=== PATIENT | male | born 1970 | race Caucasian/White ===

== ENCOUNTER → 2023-09-21 | Outpatient (CLI) | payer OTHER ==
--- NOTE | 2023-09-21 12:47 | XR ---
EXAMINATION TYPE: XR shoulder complete LT DATE OF EXAM: 09/21/2023 12:10 PM CLINICAL INDICATION:Male, 53 years old with history of [id number] LT SHLD PAIN; [facility] COMPARISON: None TECHNIQUE: XR shoulder complete LT; examined in AP, internally rotated and scapular Y projections. FINDINGS: No evidence of acute osseous pathology, joint dislocation, or soft tissue swelling. The remaining po rtions of the visualized chest are unremarkable. Mild degeneration changes of the acromion and dista l clavicle. IMPRESSION: 1. No acute osseous pathology. 2. Mild shoulder osteoarthrosis.
== END | disposition home or self-care (01) ==
LOC: RADXRYALE 12:00
PROVIDERS: ATTEND Internal Medicine
DX: M19.012 Primary osteoarthritis, left shoulder (principal)

== ENCOUNTER → 2024-02-12 | Outpatient (CLI) | payer OTHER ==
[2024-02-12 20:14] LABS: Basophils # (A) 0.06 X 10*3/uL (0.00-0.10); Basophils % (A) 0.8 %; Eosinophils # (A) 0.26 X 10*3/uL (0.04-0.35); Eosinophils % (A) 3.6 %; HCT 43.6 % (39.6-50.0); HGB 14.5 g/dL (13.0-17.0); Lymphocytes # (A) 2.37 X 10*3/uL (0.90-5.00); Lymphocytes % (A) 32.6 %; MCH 32.5 pg (27.0-32.0); MCHC 33.3 g/dL (32.0-37.0); MCV 97.8 FL (80.0-97.0); Mean Platelet Volume 10.5 FL (9.5-12.2); Monocytes % (A) 8.3 %; NRBC Per 100 WBC 0 X 10*3/uL (0.00-0.01); Neutrophils # (A) 3.92 X 10*3/uL (1.80-7.70); Neutrophils % (A) 53.9 %; Platelet Count 219 X 10*3/uL (140-440); RBC 4.46 X 10*6/uL (4.40-5.60); WBC 7.27 X 10*3/uL (4.50-10.00)
[2024-02-12 20:36] LABS: Anion Gap 11.2 mmol/L (4.00-12.00); Carbon Dioxide 25.8 mmol/L (21.6-31.8); Potassium 4.2 mmol/L (3.5-5.5)
== END | disposition home or self-care (01) ==
LOC: LABWHC1 14:00
PROVIDERS: ATTEND Orthopaedic Surgery
DX: M75.42 Impingement syndrome of left shoulder (principal)
CPT/HCPCS: 36415; 80051; 85025

== ENCOUNTER → 2024-02-24 | Day surgery (SDC) | payer OTHER ==
[2024-02-22 15:06] VITALS: BMI 36.6
--- NOTE | 2024-02-23 22:49 | HP ---
HISTORY AND PHYSICAL Surgery is scheduled for 02/24/2024. HISTORY OF PRESENT ILLNESS: Davion Ng is a 53-year-old patient, who was seen with progressive left shoulder pain. We discussed options regarding treatment. He elected to proceed with left shoulder arthroscopy. Consent was obtained. PAST MEDICAL HISTORY: Hypertension, gastroesophageal reflux disease. PAST SURGICAL HISTORY: Rib excision. DAILY MEDICATIONS: 1. Lisinopril. 2. Pantoprazole. ALLERGIES: None. SOCIAL HISTORY: Denies tobacco use. PHYSICAL EVALUATION OF THE LEFT SHOULDER: Flexion is 100 degrees. Abduction is 90 degrees. External rotation is 40 degrees with pain and weakness. He is tender along the anterolateral acromion and rotator cuff insertion. Impingement is positive at 90 degrees. Cross-body adduction sign is positive. Drop-arm sign is positive. Distal neurovascular exam is intact. IMAGING STUDIES: Radiographs of the left shoulder revealed a type 3 acromion, acromioclavicular joint osteoarthritis and cystic changes of the tuberosity. MRI of left shoulder revealed rotator cuff tendon tear, acromioclavicular joint osteoarthritis, impingement in biceps dislocation. IMPRESSION: 1. Left shoulder impingement with rotator cuff tear. 2. Left shoulder acromioclavicular joint osteoarthritis. 3. Left shoulder bicipital dislocation/tendinitis. 4. Hypertension. PLAN: Left shoulder arthroscopy with subacromial decompression, rotator cuff repair, Tiffanie procedure, biceps tenodesis. MMROSELIAL / JOSHUAN: [id number] /
[~2024-02-24] MED LIST: LIDOCAINE 1% INJ 10MG/ML (20 ML MDV) ONE; PHENYLEPHRINE-0.9% NACL SYG 1,000 MCG/10 ML SYRINGE ONE; PROPOFOL 10 MG/ML 20 ML VIAL IV ONE; ROPIVACAINE 5 MG/ML 30 ML VIAL ONE; SUCCINYLCHOLINE CHLORIDE 200 MG/10 ML VIAL IV ONE; fentaNYL (PF) 50 MCG/ML 2 ML AMP ONE
[2024-02-24] MEDS: LIDOCAINE 1% (10MG/ML) FOR IV START INTRADERMA STA (06:35)
[2024-02-24] MEDS: LACTATED RINGERS 1,000 ML IV SCH (06:35)
[2024-02-24] MEDS: IV FLUID CONTINUATION 1,000 ML IV ONE ×2 (06:35→10:29)
[2024-02-24] MEDS: ONDANSETRON 4 MG/2 ML VIAL IVP STA (06:51)
[2024-02-24] MEDS: DEXAMETHASONE SOD PHOSPHATE 4 MG/ML 1 ML VIAL IVP STA (06:52)
[2024-02-24] MEDS: MIDAZOLAM 2 MG/2 ML VIAL IV ONE (07:11)
[2024-02-24] MEDS: ceFAZolin 3 GM in SODIUM CHLORIDE 0.9% 100 ML IVPB PRN (07:25)
--- NOTE | 2024-02-24 09:21 | P.OP ---
Date of Procedure: 02/24/24 Preoperative Diagnosis: Left shoulder impingement Postoperative Diagnosis: 1. Left shoulder rotator cuff tear 2. Left shoulder impingement 3. Left shoulder bicipital tendinitis 4. Left shoulder acromioclavicular joint osteoarthritis 5. Left shoulder superficial labral tear Procedure(s) Performed: 1. Left shoulder arthroscopic rotator cuff repair 2. Left shoulder arthroscopic subacromial decompression 3. Left shoulder arthroscopic biceps tenodesis 4. Left shoulder arthroscopic Tiffanie procedure 5. Left shoulder arthroscopic debridement labral tear Implants: 2Arthrex 4.75 swivel lock anchors Anesthesia: GETA, regional (Interscalene block) Surgeon: Prasanna Cortes Machinery Cleaner #1: Mike Burgos Estimated Blood Loss (ml): 10 Pathology: none sent Condition: stable Disposition: PACU Indications for Procedure: 53-year-old patient seen with progressive left shoulder pain. After having treatment options discussed, he elected to proceed with arthroscopy. Operative Findings: See description of procedure Description of Procedure: Patient underwent an interscalene block by department of anesthesia. The patient was then taken to the operative suite. The patient underwent a general anesthetic by the department of anesthesia. The patient was placed into a lateral position and secured. There was appropriate padding of the bony prominence. Left shoulder was then prepped and draped in normal sterile orthopedic fashion. We placed the extremity in 10 pounds of longitudinal traction. A posterior incision was now made for a posterior working portal site. The trocar and cannula were inserted into the glenohumeral joint. Arthroscopy was initiated. Spinal needle was now inserted anteriorly, to ascertain the anterior working portal site. An incision was now made in that area, a trocar was inserted followed by a probe. There was superficial tearing of the superior labrum. There was hyperemia involving the long head biceps tendon consistent with chronic tendinitis. There was no significant chondromalacia present. I debrided out the superficial labral tear with a motorized shaver. The residual labrum was probed and was found to be stable. I decided to proceed with an arthroscopic biceps tenodesis. I placed a cannula through the anterior portal site. I passed a loop and tack type stitch through the biceps tendon. I now released the long head biceps tendon from the superior labral anchor. With the assistance of Ronny MILIAN partial hole at the area of the interval for insertion of an anchor. The suture line was passed through the eyelet of an Arthrex 4.75 swivel lock anchor. I placed the eyelet into the preplanned hole and held in position while Ronny MILIAN tensioned the suture and deployed the anchor with good fixation noted. The residual suture limb was clipped. We had a stable appearing biceps tenodesis. Instruments were now removed from the glenohumeral joint. Utilizing the posterior working portal site, the trocar and cannula were inserted into the subacromial space. Arthroscopy initiated. I made an incision 2 fingerbreadths lateral to the acromion. I introduced my trocar followed by my ArthroCare ablator. I now began ablating thick subacromial bursal tissue, which exposed the undersurface of the anterior acromion. There was diminished subacromial space. There was a very prominent anterior acromion. A motorized bur was introduced and a subacromial decompression was performed. I also excised some osteophytes off the inferior aspect of the distal clavicle. The AC joint was visualized and noted to be fairly arthritic. The motorized bur was introduced in the anterior portal site and a Tiffanie procedure was performed without difficulty removing 8 mm of bone off the distal clavicle, decompressing the AC joint nicely. I turned my attention to the rotator cuff. There was a 1 cm rotator cuff tear. I debrided the margins getting down to stable tendon tissue. The defect measured about 1.5 cm and was freely mobile over the footprint. I introduced my motorized bur and abraded the footprint area, getting some petechial bleeding. With the assistance of Ronny MILIAN I passed 2 inverted mattress sutures through good bites of rotator cuff tendon. I punched a hole at the end of the interval for insertion of an anchor. All 4 limbs of suture were passed through the eyelet of an Arthrex 4.75 swivel lock anchor. I placed the eyelet into the prepunched a hole and held in position while Ronny MILIAN tension all 4 limbs of suture and deployed the anchor with good fixation noted. All residual suture limbs were now clipped. We had good compression of the tendon along the entire footprint. Instruments now removed from the portal sites. All portal sites were approximated with nylon suture. Sterile dressings were applied followed by a shoulder immobilizer. Mike MILIAN assisted in this complex case. The patient was awakened, transferred to a bed, and taken to recovery in stable condition.
[2024-02-24 09:23] VITALS: TEMP 96.9
[2024-02-24 10:27] VITALS: RESP 16
[2024-02-24 10:42] VITALS: BP 128/87; PULSE 82
--- NOTE | 2024-02-24 12:57 | P.ANPRN ---
Procedure Note - Anesthesia - Nerve Block Performed Left Interscalene Single Time Out Performed: Yes ([id number]) Date of Procedure: 02/24/24 Procedure Start Time: 07:12 Procedure Stop Time: 07:16 Location of Patient: PreOp Indication: Acute Post-Operative Pain, Requested by Surgeon Specifically requested for management of pain by DrYane: Prasanna Cortes Sedation Type: Sedate with meaningful contact maintained Preparation: Sterile Prep Position: Supine Catheter: None Needle Types: Pajunk Needle Gauge: 21 Ultrasound used to visualize needle placement: Yes Ultrasound used to observe medication spread: Yes ( ) Injectate: 0.5% Ropivacaine (see comment for volume) (30cc) Blood Aspirated: No Pain Paresthesia on Injection Noted: No Resistance on Injection: Normal Image Stored and Saved: Yes Events: Uneventful and Well Tolerated
== END | disposition home or self-care (01) ==
LOC: OR 05:37
PROVIDERS: ATTEND Orthopaedic Surgery
DX: M75.102 Unspecified rotator cuff tear or rupture of left shoulder, not specified as traumatic (principal); M75.22 Bicipital tendinitis, left shoulder; M19.012 Primary osteoarthritis, left shoulder; S43.432A Superior glenoid labrum lesion of left shoulder, initial encounter; I10 Essential (primary) hypertension; K21.9 Gastro-esophageal reflux disease without esophagitis; F41.9 Anxiety disorder, unspecified; Z87.891 Personal history of nicotine dependence; X58.XXXA Exposure to other specified factors, initial encounter
CPT/HCPCS: 64415; 29824; 29827; 29828; 29826; C1713 ×2; J2250; J0330; J1100; J0690; J2405; J2003; J3010; J2795; J2704; J2371